=== PATIENT | female | born 1945 | race Caucasian/White ===

== ENCOUNTER → 2020-02-21 | Outpatient (CLI) | payer MEDICARE, OTHER ==
[~2020-02-21] MED LIST: ALEVE 220MG220 MG PO; BYSTOLIC5 MG PO; CALCIUM600 M1 PO; CENTRUM SILVER1 TAB PO; OMEGA-3 FISH1200 MG PO; PREMPRO 0.3 MG-1 TAB PO; PRILOSEC 20MG20 MG PO; ZETIA 10MG TAB10 MG PO
== END ==
LOC: MHCPAIN 12:24
DX: M47.817 Spondylosis without myelopathy or radiculopathy, lumbosacral region (principal); M54.5 Low back pain; M53.3 Sacrococcygeal disorders, not elsewhere classified; G89.29 Other chronic pain
CPT/HCPCS: G0463

== ENCOUNTER → 2020-03-01 | Outpatient (CLI) | payer MEDICARE, OTHER | LOC: MHCPAIN 12:47 | DX: M47.817 Spondylosis without myelopathy or radiculopathy, lumbosacral region (principal); M54.5 Low back pain; M53.3 Sacrococcygeal disorders, not elsewhere classified; G89.29 Other chronic pain ==

== ENCOUNTER → 2020-03-06 | Outpatient (CLI) | payer MEDICARE, OTHER | LOC: MHCPAIN 14:20 | DX: M47.817 Spondylosis without myelopathy or radiculopathy, lumbosacral region (principal); M54.5 Low back pain; M53.3 Sacrococcygeal disorders, not elsewhere classified; M41.26 Other idiopathic scoliosis, lumbar region; G89.29 Other chronic pain | CPT/HCPCS: G0463 ==

== ENCOUNTER → 2020-03-15 | Outpatient (CLI) | payer MEDICARE, OTHER | LOC: MHCPAIN 13:05 | DX: M47.817 Spondylosis without myelopathy or radiculopathy, lumbosacral region (principal); M41.26 Other idiopathic scoliosis, lumbar region; M43.17 Spondylolisthesis, lumbosacral region; M54.5 Low back pain ==

== ENCOUNTER → 2020-04-23 | Outpatient (CLI) | payer MEDICARE, OTHER | LOC: MHCPAIN 13:15 | DX: M47.817 Spondylosis without myelopathy or radiculopathy, lumbosacral region (principal); M54.5 Low back pain; M53.3 Sacrococcygeal disorders, not elsewhere classified; G89.29 Other chronic pain | CPT/HCPCS: G0463; J1100; J2250; J3010 ==

== ENCOUNTER → 2020-07-17 | Outpatient (CLI) | payer MEDICARE, OTHER | LOC: MHCPAIN 13:09 | DX: M47.817 Spondylosis without myelopathy or radiculopathy, lumbosacral region (principal); M54.5 Low back pain; M53.3 Sacrococcygeal disorders, not elsewhere classified; G89.29 Other chronic pain | CPT/HCPCS: G0463 ==

== ENCOUNTER → 2021-04-15 | Outpatient (CLI) | payer MEDICARE, OTHER | LOC: MHCPAIN 14:57 | DX: M47.817 Spondylosis without myelopathy or radiculopathy, lumbosacral region (principal); M41.86 Other forms of scoliosis, lumbar region; M54.5 Low back pain; M53.3 Sacrococcygeal disorders, not elsewhere classified | CPT/HCPCS: G0463 ==

== ENCOUNTER → 2021-05-02 | Outpatient (CLI) | payer MEDICARE, OTHER | LOC: MHCPAIN 10:03 | DX: M47.817 Spondylosis without myelopathy or radiculopathy, lumbosacral region (principal); M54.5 Low back pain; M53.3 Sacrococcygeal disorders, not elsewhere classified ==

== ENCOUNTER → 2021-06-13 | Outpatient (CLI) | payer MEDICARE, OTHER | LOC: MHCPAIN 10:25 | DX: M47.817 Spondylosis without myelopathy or radiculopathy, lumbosacral region (principal); M54.5 Low back pain; M53.3 Sacrococcygeal disorders, not elsewhere classified | CPT/HCPCS: G0463; J1100; J2250; J3010 ==

== ENCOUNTER → 2021-08-05 | Outpatient (CLI) | payer MEDICARE, OTHER | LOC: MHCPAIN 12:20 | DX: M47.817 Spondylosis without myelopathy or radiculopathy, lumbosacral region (principal); M53.3 Sacrococcygeal disorders, not elsewhere classified; M54.50 Low back pain, unspecified; M41.86 Other forms of scoliosis, lumbar region | CPT/HCPCS: G0463 ==

== ENCOUNTER → 2021-08-20 | Outpatient (CLI) | payer MEDICARE, OTHER | LOC: MHCPAIN 11:23 | DX: M47.817 Spondylosis without myelopathy or radiculopathy, lumbosacral region (principal); M53.3 Sacrococcygeal disorders, not elsewhere classified | CPT/HCPCS: G0260; J1040; Q9967 ==

== ENCOUNTER → 2021-09-02 | Outpatient (CLI) | payer MEDICARE, OTHER | LOC: MHCPAIN 14:17 | DX: M47.896 Other spondylosis, lumbar region (principal); M53.3 Sacrococcygeal disorders, not elsewhere classified; M54.50 Low back pain, unspecified | CPT/HCPCS: G0463 ==

== ENCOUNTER → 2022-07-03 | Outpatient (CLI) | payer MEDICARE, OTHER ==
[~2022-07-03] VITALS: Ht 160.1 cm; Wt 72.9 kg
[~2022-07-03] MED LIST changes: +ARICEPT ODT10 MG PO; +CEPHALEXIN500 M1 PO; +EFFEXOR 3737.5 MG/TA PO; +ELIQUIS 5MG PO; +PREDNISONE 5MG5 MG PO; +TOPROL XL 25MG25 MG PO
[2022-07-03 08:22] LABS: HEMATOCRIT 40.1 % (37.0-47.0); HEMOGLOBIN 13.5 g/dl (12.5-16.0); MEAN CELL VOLUME 95 fl (80.0-100.0); MEAN CORPUSCULAR HEMOGLOBIN 32 pg (27-31); MEAN CORPUSCULAR HGB CONC 34 g/dl (33.0-37.0); MEAN PLATELET VOLUME 10.5 fl (7.4-10.4); PLATELET COUNT 241 K/mm3 (130-400); RED BLOOD COUNT 4.23 M/mm3 (4.10-5.30); REDCELL DISTRIBUTION WIDTH-CV 12.3 % (11.5-14.5)
--- NOTE | 2022-07-03 08:30 | NUR ---
ICICLE MACHINE OPERATOR BEDSIDE, ECHO BEDSIDE AND . VSS. BP SET TO Q15.
--- NOTE | 2022-07-03 08:30 | NUR ---
ATOMIC WELDER BEDSIDE, ECHO BEDSIDE AND . VSS. BP SET TO Q15.
[2022-07-03 08:37] VITALS: BP 151/89; PULSE 76; TEMP 98
[2022-07-03 08:37] LABS: CALCIUM 8.9 mg/dL (8.4-10.2); CREATININE, serum 0.84 mg/dL (0.57-1.11); MAGNESIUM 1.9 mg/dL (1.6-2.6); POTASSIUM 3.7 mmol/L (3.5-4.5)
[2022-07-03 08:58] LABS: THYROID STIMULATING HORMONE 1.576 uIU/mL (0.350-4.940)
[2022-07-03 09:04] LABS: INR 1.3 (0.8-3.0); PROTHROMBIN TIME 15.2 SECONDS (9.7-12.8)
[2022-07-03 09:07] LABS: PARTIAL THROMBOPLASTIN TIME 35.2 SECONDS (26.0-37.0)
[2022-07-03 09:17] VITALS: BP 121/89; BP 128/78; PULSE 56; PULSE 58; TEMP 98
--- NOTE | 2022-07-03 09:17 | NUR ---
PT GETTING A LOOP RECORDER PLACED BEDSIDE BY . LINE WORKER RNS BEDSIDE.
--- NOTE | 2022-07-03 09:17 | NUR ---
PT GETTING A LOOP RECORDER PLACED BEDSIDE BY . FORK TRUCK OPERATOR RNS BEDSIDE.
[2022-07-03 09:32] VITALS: BP 117/79; PULSE 58; TEMP 98
[2022-07-03 09:47] VITALS: BP 128/69; PULSE 70
--- NOTE | 2022-07-03 10:00 | NUR ---
PT TAKEN BACK FOR TILT TABLE TEST.
--- NOTE | 2022-07-03 10:00 | NUR ---
PT TAKEN BACK FOR TILT TABLE TEST.
[2022-07-03 11:05] VITALS: BP 122/95; PULSE 64; TEMP 98
--- NOTE | 2022-07-03 11:05 | NUR ---
PT BACK FROM TILT TABLE. PT DIZZY UPON STANDING SO TEST CANCELED.
--- NOTE | 2022-07-03 11:05 | NUR ---
PT BACK FROM TILT TABLE. PT DIZZY UPON STANDING SO TEST CANCELED.
[2022-07-03 12:00] VITALS: BP 158/93; BP 158/98; PULSE 65; PULSE 76; TEMP 98
--- NOTE | 2022-07-03 12:30 | NUR ---
DISCHARGE INSTRUCTIONS DISCUSSED WITH PT AND DAUGHTER. ALL QUESTIONS ANSWERED. IV AND TELE DCD. PT WHEELED OUT BY FLASH RANGING CREWMEMBER WITH DAUGHTER.
--- NOTE | 2022-07-03 12:30 | NUR ---
DISCHARGE INSTRUCTIONS DISCUSSED WITH PT AND DAUGHTER. ALL QUESTIONS ANSWERED. IV AND TELE DCD. PT WHEELED OUT BY AQUATICS DIRECTOR WITH DAUGHTER.
== END ==
LOC: COL.CAR 07:26
PROVIDERS: Internal Medicine Adult Congenital Heart Disease
DX: I48.19 Other persistent atrial fibrillation (principal); I70.0 Atherosclerosis of aorta; I95.1 Orthostatic hypotension; I08.3 Combined rheumatic disorders of mitral, aortic and tricuspid valves; K21.9 Gastro-esophageal reflux disease without esophagitis; Z87.891 Personal history of nicotine dependence; Z86.73 Personal history of transient ischemic attack (TIA), and cerebral infarction without residual deficits; Z79.899 Other long term (current) drug therapy
CPT/HCPCS: C1764; J2704